=== PATIENT | female | born 1980 | race Caucasian/White ===

== ENCOUNTER 2025-07-16 20:05 | Emergency (ER) | payer OTHER, MEDICAID ==
[~2025-07-16] VITALS: Ht 152.4 cm; Wt 74.0 kg
[2025-07-16 20:15] VITALS: O2SAT 99
[2025-07-16] MEDS: CYCLOBENZAPRINE 10MG TABLET PO ONE (21:35)
[2025-07-16] MEDS ORDERED: CYCL10TA21 MT (21:59)
[2025-07-16] MEDS ORDERED: IBUP-1455 MT (21:59)
[2025-07-16] MEDS ORDERED: LIDO700A30 TP (21:59)
[2025-07-16 22:15] VITALS: BP 158/87; PULSE 99; RESP 20; TEMP 37.2; O2SAT 97
== END 2025-07-16 22:16 | disposition home or self-care (01) ==
LOC: ER 20:05
DX: M54.50 Low back pain, unspecified (principal); R03.0 Elevated blood-pressure reading, without diagnosis of hypertension; R51.9 Headache, unspecified; V43.52XA Car driver injured in collision with other type car in traffic accident, initial encounter; Y93.89 Activity, other specified; Y92.410 Unspecified street and highway as the place of occurrence of the external cause; Y99.8 Other external cause status
CPT/HCPCS: 72131; 99284